=== PATIENT | female | born 1935 | race Caucasian/White ===

== ENCOUNTER 2017-06-20 05:28 | Inpatient (IN) ==
[2017-06-20] MEDS ORDERED: VANCOMYCIN INJ 1,000 MG in SODIUM CHLORIDE 0.9% 250 ML IV ONE (06:00)
[2017-06-20] MEDS ORDERED: CLINDAMYCIN INJ 900 MG in PREMIX 1 EACH IV ONE (06:00)
[2017-06-20] MEDS ORDERED: TRANEXAMIC ACID 1,000 MG/10 ML VIAL IV ONE (06:52)
--- NOTE | 2017-06-20 06:54 | History and Physical Update ---
History and Physical Update - History and Physical H&P was reviewed, the patient examined and there: are no changes in the patients condition since last H&P was completed.
[2017-06-20] MEDS ORDERED: VANCOMYCIN 1,000 MG VIAL ONE (07:58)
[2017-06-20] MEDS ORDERED: CLINDAMYCIN INJ 50 ML IV ONE (07:58)
[2017-06-20] MEDS ORDERED: LACTATED RINGERS 1,000 ML IV SCH (08:00)
[2017-06-20] MEDS ORDERED: PHENYLEPHRINE 1 MG/10 ML SYRINGE IV ONE (08:29)
[2017-06-20] MEDS ORDERED: PROPOFOL 500 MG/50 ML BOTTLE IV ONE ×2 (08:29→10:41)
[2017-06-20] MEDS ORDERED: LIDOCAINE 1% 5 ML VIAL ONE (08:29)
[2017-06-20] MEDS ORDERED: MORPHINE 2 MG/1 ML SYRINGE IV PRN ×2 (09:05)
[2017-06-20] MEDS ORDERED: oxyCODONE IR 5 MG TABLET PO PRN ×2 (09:05)
[2017-06-20] MEDS ORDERED: ONDANSETRON 4 MG/2 ML VIAL IV PRN (09:05)
[2017-06-20] MEDS ORDERED: BACITRACIN OINT 0.9 GM PACK TOP ONE ×2 (09:35→09:59)
--- NOTE | 2017-06-20 10:21 | Operative Note ---
Date of procedure: 06/20/17 Procedure: DIAGNOSIS: Right knee primary osteoarthrosis PROCEDURE: Right total knee arthroplasty (cpt #62176) SURGEON: Isauro ANESTHESIA: Spinal with a postoperative adductor canal block PROCEDURE and FINDINGS: After adequate was induced, the patient's knee was prepped and draped in the usual sterile fashion. The limb was exsanguinated with Esmarch. Tourniquet was inflated to 300 mmHg. A median parapatellar approach was made. Femur was cut using an intramedullary guide and a 4 in 1 cutting jig in 5 degrees of valgus. ACL and menisci were excised. Tibia was cut using intramedullary guide. Patella was cut using freehand technique. Components were trialed. Tibial fin was prepared. Components are cemented in place using Palacos cement and modern cementing techniques. Cement was removed. A 1/8 inch Hemovac drain was placed. The knee was well-balanced and full range of motion with central tracking patella. Deep layers closed with 0-0 Vicryl. Superficial layers were closed with 2-0 and 3-0 Vicryl. Skin was approximated with brando. Bacitracin and a sterile dressing was applied. Patient was transferred to recovery. A postoperative adductor canal block is anticipated. COMPONENTS: The Abby Persona system was used. 9 CR narrow femur, F natural tibia, 10 mm liner, 35 mm patella TOURNIQUET TIME: 48 minutes Surgeon / Physician: Neymar Box Jr. Discharge Plan - Discharge Medications No Action Omeprazole [Prilosec] 20 mg PO DAILY Aspirin [Ecotrin] 81 mg PO DAILY amLODIPine [Norvasc] 2.5 mg PO DAILY Potassium Chloride 20 meq PO DAILY Magnesium Chloride [Slow Mag] 64 mg PO DAILY [place]-3S/Dha/Epa/Fish Oil [Fish Oil 1,200 mg Softgel] 1 each PO DAILY Olmesartan/Hydrochlorothiazide [Olmesartan-Hctz 40-25 mg Tab] 1 each PO DAILY Atorvastatin [Lipitor] 10 mg PO BEDTIME Mv-Min/FA/Vit K/Lycop/Lut/Zeax [Ocuvite Eye + Multi Tablet] 1 each PO DAILY Multivitamin [Multivitamins] 1 each PO DAILY - Follow Up or Referral - Forms/Instructions
[2017-06-20] MEDS ORDERED: ROPIVACAINE 0.5% 30 ML VIAL ONE (10:24)
[2017-06-20] MEDS ORDERED: MIDAZOLAM 2 MG/2 ML VIAL ONE (10:41)
--- NOTE | 2017-06-20 11:24 | XRay Report ---
XR knee 2V RT Indication: Knee arthroplasty Comparison: None available Findings: Right knee arthroplasty has been performed. Arthroplasty component alignment and positioning appear within normal limits. No periprosthetic fracture seen. Impression: Expected postoperative appearance of the right knee. PROCEDURE INTERPRETED AT [facility] DEPARTMENT OF RADIOLOGY Final Report Signed by: Dr. Rebel Trimble
[2017-06-20] MEDS: MULTIVITAMIN (CENTRUM) TABLET PO SCH (12:55)
[2017-06-20] MEDS: PANTOPRAZOLE 40 MG TABLET PO SCH (12:55)
[2017-06-20] MEDS: OMEGA 3 ACID ETHYL ESTERS 1 GM CAPSULE PO SCH (12:58)
[2017-06-20] MEDS: KETOROLAC 15 MG/1 ML VIAL IV SCH ×2 (13:19→23:24)
[2017-06-20] MEDS: ACETAMINOPHEN 500 MG TABLET PO SCH ×2 (13:25→23:24)
[2017-06-20] MEDS: DEXT 5% LACT RING KCL 20 MEQ 20 MEQ/1,000 ML BAG IV SCH (13:25)
[2017-06-20] MEDS: CLINDAMYCIN INJ 900 MG in PREMIX 1 EACH IV SCH ×2 (13:30→23:25)
--- NOTE | 2017-06-20 16:05 | Orthopedic Progress Note ---
Orthopedics - Subjective Interval history: Comfortable. Post op. nv ok. dressing dry. Continue per protocol. Exam - Constitutional Vitals: Period Temp Pulse Resp BP Sys/Unger Pulse Ox Last 24 Hr 97.2 F-98.2 F 64-91 16-20 111-154/52-92 97-100
--- NOTE | 2017-06-20 18:16 | Pulmonology Progress Note ---
Pulmonary - PN: Subj Interval history: The patient is a 82 years old and has significant arthritis of her knees. She had been having a difficult time getting around because of right knee pain. She comes in now for right knee replacement. She has a history of having a mild CVA in the past with some minimal right-sided weakness. She does have a history of hypertension but no heart disease. She has not had any trouble with her breathing. She came in today and did well with her surgery. She is uncomfortable lying in bed however. Otherwise she is not having any breathing problems or other medical problems. Exam (Progress Note) - Constitutional Vitals: Period Temp Pulse Resp BP Sys/Unger Pulse Ox Last 24 Hr 96.9 F-98.2 F 64-98 16-20 111-154/52-92 95-100 General appearance: mild distress (She is uncomfortable lying in bed at present. She is having some discomfort with her knee and back), over weight - Head Head exam: Present: normal inspection, normocephalic - Eye Eye exam: Present: EOMI. Absent: scleral icterus Pupils: Present: JOYS - ENT ENT exam: Present: normal exam - Neck Neck exam: Absent: lymphadenopathy, thyromegaly - Respiratory Respiratory exam: Present: clear to auscultation bilaterally. Absent: wheezes - Cardiovascular Cardiovascular exam: Present: regular rate and rhythm. Absent: gallop, systolic murmur - GI/Abdominal GI/Abdominal exam: Present: normal bowel sounds, soft. Absent: organomegaly, tenderness - Extremities Exam Extremities exam: Present: other (The right leg is splinted). Absent: edema - Neurological Exam Neurological exam: Present: alert, oriented X3, CN II-XII intact - Psychiatric Psychiatric exam: Present: normal affect - Skin Skin exam: Present: warm, dry Assessment and Plan (1) Degenerative arthritis Status: Acute Assessment and plan: She has been having considerable arthritis of her knees and her right knee has been bothering her a lot. She comes in now for a knee replacement. Current Visit: Yes (2) Status post right knee replacement Status: Acute Assessment and plan: She did well today with surgery and is fairly stable postop. Current Visit: Yes (3) Hypertension Status: Acute Assessment and plan: Her blood pressure and heart rate have been stable. Current Visit: Yes (4) History of CVA (cerebrovascular accident) Status: Acute Assessment and plan: She has had an aneurysm and a mild CVA in the past but is doing fairly well now. Current Visit: Yes
[2017-06-20] MEDS: ATORVASTATIN 20 MG TABLET PO SCH (20:38)
[2017-06-20] MEDS: DOCUSATE SODIUM 100 MG CAPSULE PO SCH (20:38)
[2017-06-20] MEDS: ZALEPLON 5 MG CAPSULE PO PRN (23:23)
[2017-06-21] MEDS: DEXT 5% LACT RING KCL 20 MEQ 20 MEQ/1,000 ML BAG IV SCH ×2 (03:23→22:07)
[2017-06-21] MEDS: ACETAMINOPHEN 500 MG TABLET PO SCH ×2 (06:18→11:36)
[2017-06-21] MEDS: KETOROLAC 15 MG/1 ML VIAL IV SCH ×2 (06:18→11:37)
[2017-06-21 07:11] LABS: Basophils % 0.4 % (0.0-0.8); Eosinophils # 0.2 10*3/uL (0.0-0.87); Eosinophils % 2.2 % (0.00-10.9); Hemoglobin 12.3 GM/DL (12.0-16.0); Immature Granulocytes % 0.6 %; Immature Granulocytes Absolute 0.06 #; Lymphocytes # 1.8 10*3/uL (1.4-4.0); Lymphocytes % 17.7 % (21.3-54.2); Mean Corpuscular HGB Conc 32.4 GM/DL (32-36); Mean Corpuscular Hemoglobin 29 PG (27-34); Mean Corpuscular Volume 89.4 FL (87-102); Mean Platelet Volume 10.1 FL (9.6-12.0); Monocytes # 1.2 10*3/uL (0.11-0.8); Monocytes % 11.7 % (1.7-12.7); Neutrophils # 6.8 10*3/uL (1.4-7.4); Neutrophils % 67.4 % (38.7-73.9); Platelet Count 205 T/CUMM (130-400); Red Blood Count 4.25 MC/CUMM (3.8-5.5); Red Cell Distribution Width 14.3 % (9.3-17.3)
[2017-06-21 07:55] LABS: Calcium 8.8 MG/DL (8.5-10.1); Osmolality,Calculated 283.1 MOS/KG (273-304); Potassium 4.2 MMOL/L (3.5-5.1)
--- NOTE | 2017-06-21 08:38 | Orthopedic Progress Note ---
Orthopedics - Subjective Interval history: Comfortable postop. Dressing clean, dry and intact. Right lower extremity neurovascular change. Plan: Mobilize per protocol. Plan swing bed placement. Exam - Constitutional Vitals: Period Temp Pulse Resp BP Sys/Unger Pulse Ox Last 24 Hr 96.7 F-98.6 F 64-98 16-20 99-144/44-92 92-100 Results - Labs CBC & BMP: 06/21/17 06:40 06/21/17 06:40
--- NOTE | 2017-06-21 08:56 | Pulmonology Progress Note ---
Pulmonary - PN: Subj Interval history: The patient is a 82 years old and has significant arthritis of her knees. She had been having a difficult time getting around because of right knee pain. She comes in now for right knee replacement. She has a history of having a mild CVA in the past with some minimal right-sided weakness. She does have a history of hypertension but no heart disease. She has not had any trouble with her breathing. She was uncomfortable yesterday after surgery but she had a better night. She says she slept well and feels better today. Her drains are out today and she is going to start moving around. Overall she looks like she is doing well. Exam (Progress Note) - Constitutional Vitals: Period Temp Pulse Resp BP Sys/Unger Pulse Ox Last 24 Hr 96.7 F-98.6 F 64-98 16-20 99-144/44-92 92-100 Exam: General appearance: no distress (She is much more comfortable today.) - Head Head exam: Present: normal inspection, normocephalic - Eye Eye exam: Present: EOMI. Absent: scleral icterus Pupils: Present: JOSY - ENT ENT exam: Present: normal exam - Neck Neck exam: Absent: lymphadenopathy, thyromegaly - Respiratory Respiratory exam: Present: clear to auscultation bilaterally. She is moving air well without any problems. absent: wheezes - Cardiovascular Cardiovascular exam: Present: regular rate and rhythm. Absent: gallop, systolic murmur - GI/Abdominal GI/Abdominal exam: Present: normal bowel sounds, soft. Absent: organomegaly, tenderness - Extremities Exam Extremities exam: Present: other (The right leg is splinted). She does not have any increased swelling. Neurological exam: Present: alert, oriented X3, CN II-XII intact - Psychiatric Psychiatric exam: Present: normal affect - Skin Skin exam: Present: warm, dry Results - Labs CBC & BMP: 06/21/17 06:40 06/21/17 06:40 Assessment and Plan (1) Degenerative arthritis Status: Acute Assessment and plan: She has been having considerable arthritis of her knees and her right knee has been bothering her a lot. She comes in now for a knee replacement. She is doing well postop. Current Visit: Yes (2) Status post right knee replacement Status: Acute Assessment and plan: She did well with surgery and feels better today. She will start physical therapy. Current Visit: Yes (3) Hypertension Status: Acute Assessment and plan: Her blood pressure and heart rate have been stable. She seems to be doing well medically. Current Visit: Yes (4) History of CVA (cerebrovascular accident) Status: Acute Assessment and plan: She has had an aneurysm and a mild CVA in the past but is doing fairly well now. Current Visit: Yes
[2017-06-21] MEDS ORDERED: NON-FORMULARY MEDICATION (Multivitamin [Multivitamins] 1 EACH) PO SCH (09:00)
[2017-06-21] MEDS: POTASSIUM CHLORIDE 20 MEQ TABLET PO SCH (09:13)
[2017-06-21] MEDS: MULTIVITAMIN (CENTRUM) TABLET PO SCH (09:13)
[2017-06-21] MEDS: PANTOPRAZOLE 40 MG TABLET PO SCH (09:13)
[2017-06-21] MEDS: DOCUSATE SODIUM 100 MG CAPSULE PO SCH ×2 (09:13→21:23)
[2017-06-21] MEDS: OMEGA 3 ACID ETHYL ESTERS 1 GM CAPSULE PO SCH (09:13)
[2017-06-21] MEDS: FONDAPARINUX 2.5 MG/0.5 ML SYRINGE SUBCUT SCH (09:21)
--- NOTE | 2017-06-21 10:21 | Pathology Report from [facility] ---
[facility] [place] ACCESSION # : [id number] PATIENT NAME : Suzanne Valerio ORDERING DR : ALFA YING MD CLINICAL HX: RT knee osteoarthritis POST-OP DX: Same SPECIMEN INFO: RT knee bone & tissue GROSS DESCRIPTION: Received in formalin labeled SUZANNE VALERIO is an aggregate of bone, soft tissue and cartilage measuring 13.0 x 8.0 cm. The articular surfaces are focally degenerative with areas of subchondral eburnation seen. Looping Machine Operator tissue is submitted in one cassette. DIAGNOSIS FOR SUZANNE VALERIO: RIGHT KNEE, TOTAL REPLACEMENT: Fragments of benign cartilage and bone with degenerative/reactive changes, c/w osteoarthritis. COLLECTED DATE: 06/20/2017 [facility] [place] REPORT DATE: 06/21/2017 ELECTRONICALLY SIGNED BY: Mya Leary M.D. 06/21/2017 - 9:50:04 KATIE
[2017-06-21] MEDS: OLMESARTAN 20 MG TABLET PO SCH (11:44)
[2017-06-21] MEDS: hydroCHLOROthiazide 25 MG TABLET PO SCH (11:44)
[2017-06-21] MEDS: amLODIPine 2.5 MG TABLET PO SCH (11:44)
[2017-06-21] MEDS: CELECOXIB 200 MG CAPSULE PO SCH (15:40)
[2017-06-21] MEDS: ATORVASTATIN 20 MG TABLET PO SCH (21:23)
[2017-06-21] MEDS: ZALEPLON 5 MG CAPSULE PO PRN (21:24)
[2017-06-22 07:21] LABS: Basophils # 0.1 10*3/uL (0.0-0.2); Basophils % 0.6 % (0.0-0.8); Eosinophils # 0.3 10*3/uL (0.0-0.87); Eosinophils % 3.1 % (0.00-10.9); Hematocrit 38.4 VOL% (35.7-47.0); Hemoglobin 12.4 GM/DL (12.0-16.0); Immature Granulocytes % 0.5 %; Immature Granulocytes Absolute 0.05 #; Lymphocytes # 2.2 10*3/uL (1.4-4.0); Lymphocytes % 20.3 % (21.3-54.2); Mean Corpuscular HGB Conc 32.3 GM/DL (32-36); Mean Corpuscular Hemoglobin 29 PG (27-34); Mean Corpuscular Volume 89.5 FL (87-102); Mean Platelet Volume 10.7 FL (9.6-12.0); Monocytes # 0.9 10*3/uL (0.11-0.8); Monocytes % 8.3 % (1.7-12.7); Neutrophils # 7.2 10*3/uL (1.4-7.4); Neutrophils % 67.2 % (38.7-73.9); Platelet Count 203 T/CUMM (130-400); Red Blood Count 4.29 MC/CUMM (3.8-5.5); Red Cell Distribution Width 14.4 % (9.3-17.3); White Blood Count 10.7 T/CUMM (4-12)
--- NOTE | 2017-06-22 08:47 | Pulmonology Progress Note ---
Pulmonary - PN: Subj Interval history: The patient is a 82 years old and has significant arthritis of her knees. She had been having a difficult time getting around because of right knee pain. She comes in now for right knee replacement. She has a history of having a mild CVA in the past with some minimal right-sided weakness. She does have a history of hypertension but no heart disease. She has not had any trouble with her breathing. She had a fairly good day yesterday but she is very anxious this morning about lying in bed. She is also nervous about not being able to get around yet. Her right arm weakness limits her use with a walker. Her knee overall is feeling a little better. Will give her some Tranxene for anxiety. Exam (Progress Note) - Constitutional Vitals: Period Temp Pulse Resp BP Sys/Unger Pulse Ox Last 24 Hr 96.3 F-98.4 F 70-82 17-20 96-157/49-71 91-97 Exam: General appearance: no distress (She is anxious this morning but otherwise doing okay.) - Head Head exam: Present: normal inspection, normocephalic - Eye Eye exam: Present: EOMI. Absent: scleral icterus Pupils: Present: JOSY - ENT ENT exam: Present: normal exam - Neck Neck exam: Absent: lymphadenopathy, thyromegaly - Respiratory Respiratory exam: Present: clear to auscultation bilaterally. She is moving air well without any problems. absent: wheezes - Cardiovascular Cardiovascular exam: Present: regular rate and rhythm. Absent: gallop, systolic murmur - GI/Abdominal GI/Abdominal exam: Present: normal bowel sounds, soft. Absent: organomegaly, tenderness - Extremities Exam Extremities exam: Present: other (The right leg is splinted). She does not have any increased swelling. Neurological exam: Present: alert, oriented X3, CN II-XII intact, she has some mild right arm weakness. - Psychiatric Psychiatric exam: Present: She is anxious this morning. - Skin Skin exam: Present: warm, dry Results - Labs CBC & BMP: 06/22/17 06:07 06/21/17 06:40 Assessment and Plan (1) Degenerative arthritis Status: Acute Assessment and plan: She has been having considerable arthritis of her knees and her right knee has been bothering her a lot. She has had her knee replacement now. Current Visit: Yes (2) Status post right knee replacement Status: Acute Assessment and plan: She did well with surgery and her knee is doing a little better. She will continue with physical therapy. Current Visit: Yes (3) Hypertension Status: Acute Assessment and plan: Her blood pressure and heart rate have been stable. She is having some anxiety about lying in bed. She will continue with her physical therapy. We will try some Tranxene for anxiety. Current Visit: Yes (4) History of CVA (cerebrovascular accident) Status: Acute Assessment and plan: She has had an aneurysm and a mild CVA in the past but is doing fairly well now. Current Visit: Yes Specialty Discharge - Follow Up or Referrals Follow up with: Neymar Box Jr., MD [Physician] -
--- NOTE | 2017-06-22 09:09 | Orthopedic Progress Note ---
Orthopedics - Subjective Interval history: Ms Snider was able to mobilize to chair yesterday. She was a little sedated yesterday morning which limited her morning physical therapy session. Right lower extremity is neurovascularly intact. Her dressing is clean, dry and intact. Plan: Continue to mobilize with physical therapy. Decrease [place] dose from 7.5' s to 5's. Plan swing bed placement tomorrow. Exam - Constitutional Vitals: Period Temp Pulse Resp BP Sys/Unger Pulse Ox Last 24 Hr 96.3 F-98.4 F 70-82 17-20 96-157/49-71 91-97 Results - Labs CBC & BMP: 06/22/17 06:07 06/21/17 06:40 Specialty Discharge - Follow Up or Referrals Follow up with: Neymar Box Jr., MD [Physician] -
[2017-06-22] MEDS: FONDAPARINUX 2.5 MG/0.5 ML SYRINGE SUBCUT SCH (09:27)
[2017-06-22] MEDS: hydroCHLOROthiazide 25 MG TABLET PO SCH (09:28)
[2017-06-22] MEDS: CLORAZEPATE 3.75 MG TABLET PO PRN ×2 (09:28→21:12)
[2017-06-22] MEDS: OMEGA 3 ACID ETHYL ESTERS 1 GM CAPSULE PO SCH (09:28)
[2017-06-22] MEDS: CELECOXIB 200 MG CAPSULE PO SCH (09:28)
[2017-06-22] MEDS: amLODIPine 2.5 MG TABLET PO SCH (09:28)
[2017-06-22] MEDS: DOCUSATE SODIUM 100 MG CAPSULE PO SCH ×2 (09:28→21:13)
[2017-06-22] MEDS: OLMESARTAN 20 MG TABLET PO SCH (09:28)
[2017-06-22] MEDS: POTASSIUM CHLORIDE 20 MEQ TABLET PO SCH (09:29)
[2017-06-22] MEDS: PANTOPRAZOLE 40 MG TABLET PO SCH (09:29)
[2017-06-22] MEDS: MULTIVITAMIN (CENTRUM) TABLET PO SCH (09:52)
[2017-06-22] MEDS: MAGNESIUM HYDROXIDE SUSP 30 ML UDCUP PO PRN (12:29)
--- NOTE | 2017-06-22 14:01 | Discharge Summary ---
Hospital Course - Hospital Course Hospital Course: Suzanne Snider was admitted after undergoing an uncomplicated right total knee arthroplasty. She received perioperative DVT and antimicrobial prophylaxis. She received physical therapy. She was discharged to swing bed in stable condition. Dr. Benz was consulted to manage her medical problems perioperatively. Her wound is clean, dry and intact. Right lower extremity is neurovascularly unchanged. Specialty Discharge - Follow Up or Referrals Follow up with: Neymar Box Jr., MD [Physician] - 07/20/17 8:55 am Discharge Plan - Discharge Data Disposition: Disch/Xfer to Snf Condition at Discharge: Stable Discharge Diet: advance to your usual diet Hygiene: may shower Weight Bearing at Discharge: weight bear as tolerated Driving: not until seen by doctor - Discharge Medications New Docusate Sodium Cap [Colace Cap] 100 mg PO BID capsule Fondaparinux [Arixtra] 2.5 mg SUBCUT Q24H 10 Days HYDROcodone/ACETAMIN 5-325 [[place] 5-325] 1 tablet PO Q4H PRN tablet PRN Reason: Pain Moderate (4-7) HYDROcodone/ACETAMIN 5-325 [[place] 5-325] 2 tablet PO Q4H PRN tablet PRN Reason: Pain Moderate (4-7) Continue Omeprazole [Prilosec] 20 mg PO DAILY Aspirin [Ecotrin] 81 mg PO DAILY amLODIPine [Norvasc] 2.5 mg PO DAILY Potassium Chloride 20 meq PO DAILY Magnesium Chloride [Slow Mag] 64 mg PO DAILY [place]-3S/Dha/Epa/Fish Oil [Fish Oil 1,200 mg Softgel] 1 each PO DAILY Olmesartan/Hydrochlorothiazide [Olmesartan-Hctz 40-25 mg Tab] 1 each PO DAILY Atorvastatin [Lipitor] 10 mg PO BEDTIME Mv-Min/FA/Vit K/Lycop/Lut/Zeax [Ocuvite Eye + Multi Tablet] 1 each PO DAILY Multivitamin [Multivitamins] 1 each PO DAILY - Follow Up or Referral Follow Up: Neymar Box Jr., MD [Physician] - 07/20/17 8:55 am - Forms/Instructions Additional Discharge Instructions: Daily dry dressing changes. Weightbearing as tolerated. CPM while at swing bed. Arrange walker and bedside commode for home use. Wear SAMANTHA hose for 1 month. Discontinue brando and Steri-Strip wound on July 01, 2017. Follow-up appointment in 4 weeks. Arixtra for 10 days. Prescription for [place] 5 with 20 tablets was written. Exam - Constitutional Vitals: Period Temp Pulse Resp BP Sys/Unger Pulse Ox Last 24 Hr 97.3 F-98.4 F 75-84 17-20 107-157/59-71 96-97 Discharge Results Procedures and tests throughout hospitalization: Pending Orders 06/23/17 04:00 Comp Blood Count Auto Diff IN AM Labs on day of discharge: Labs from last 24 hours 06/22/17 06:07 WBC 10.7 RBC 4.29 Hgb 12.4 Hct 38.4 MCV 89.5 MCH 29 MCHC 32.3 RDW 14.4 Plt Count 203 MPV 10.7 Neut % (Auto) 67.2 Lymph % (Auto) 20.3 L [place] % (Auto) 8.3 Eos % (Auto) 3.1 Baso % (Auto) 0.6 Neut # (Auto) 7.2 Lymph # (Auto) 2.2 [place] # (Auto) 0.9 H Eos # (Auto) 0.3 Baso # (Auto) 0.1 Immature Gran % 0.5 Nucleated RBC % 0.0 Immature Gran # 0.05 Nucleated RBCs # 0.00 Immature Plt Fraction 0.0 DS: Provider Date of admission: 06/20/17 05:28 Primary care physician: Vibha Kenney MD Attending physician on admission: Neymar Box Jr., Consults: 06/20/17 09:05 Consult to Case Mgmt/Social Srvs [CONS] Routine Reason for Case Mgmt/Social Srvs: Rehab Home Health Equipment Consult Comment: Bedside Commode, CPM, Walker Consult to Occupational Therapy [CONS] Routine Reason for Occupational Therapy: Evaluate and Treat Consult Comment: ADL's Consult to Physical Therapy [CONS] Routine Reason for Physical Therapy: Evaluate and Treat Gait Training Start Therapy: Today 06/20/17 11:33 Consult to Physician [CONS] Routine Comment: Consulting Provider: Kuldeep Benz Consulting Provider Notified: Yes When should Consulting Provider be notified: Now Person Notified: leopoldo deshawn Date Notified: 06/20/17 Time Notified: 11:35 06/20/17 11:56 Consult to Pastoral Services [CONS] Routine Comment: Pastoral Screen: Request Hand Turner Visit Pastoral Screen Source of Request: Patient Family Discharging clinician: Neymar Box Jr., Expected date of discharge: 06/23/17
[2017-06-22] MEDS: ATORVASTATIN 20 MG TABLET PO SCH (21:12)
[2017-06-23] MEDS: MAGNESIUM HYDROXIDE SUSP 30 ML UDCUP PO PRN (05:45)
[2017-06-23 06:22] LABS: Basophils # 0.1 10*3/uL (0.0-0.2); Basophils % 0.7 % (0.0-0.8); Eosinophils # 0.4 10*3/uL (0.0-0.87); Eosinophils % 4.8 % (0.00-10.9); Hematocrit 36.6 VOL% (35.7-47.0); Immature Granulocytes % 0.6 %; Immature Granulocytes Absolute 0.05 #; Lymphocytes # 2.2 10*3/uL (1.4-4.0); Lymphocytes % 24.6 % (21.3-54.2); Mean Corpuscular HGB Conc 32.8 GM/DL (32-36); Mean Corpuscular Hemoglobin 29 PG (27-34); Mean Corpuscular Volume 88.6 FL (87-102); Mean Platelet Volume 10.1 FL (9.6-12.0); Monocytes # 0.8 10*3/uL (0.11-0.8); Monocytes % 8.3 % (1.7-12.7); Neutrophils # 5.5 10*3/uL (1.4-7.4); Platelet Count 222 T/CUMM (130-400); Red Blood Count 4.13 MC/CUMM (3.8-5.5); Red Cell Distribution Width 14.4 % (9.3-17.3)
[2017-06-23] MEDS ORDERED: BISACODYL 10 MG SUPP RECTAL PRN (07:48)
[2017-06-23] MEDS: FONDAPARINUX 2.5 MG/0.5 ML SYRINGE SUBCUT SCH (08:23)
[2017-06-23] MEDS: DOCUSATE SODIUM 100 MG CAPSULE PO SCH (08:24)
[2017-06-23] MEDS: amLODIPine 2.5 MG TABLET PO SCH (08:24)
[2017-06-23] MEDS: CELECOXIB 200 MG CAPSULE PO SCH (08:25)
[2017-06-23] MEDS: MULTIVITAMIN (CENTRUM) TABLET PO SCH (08:25)
[2017-06-23] MEDS: PANTOPRAZOLE 40 MG TABLET PO SCH (08:25)
[2017-06-23] MEDS: hydroCHLOROthiazide 25 MG TABLET PO SCH (08:25)
[2017-06-23] MEDS: OLMESARTAN 20 MG TABLET PO SCH (08:25)
[2017-06-23] MEDS: POTASSIUM CHLORIDE 20 MEQ TABLET PO SCH (08:25)
[2017-06-23] MEDS: OMEGA 3 ACID ETHYL ESTERS 1 GM CAPSULE PO SCH (08:26)
--- NOTE | 2017-06-23 09:08 | Pulmonology Progress Note ---
Pulmonary - PN: Subj Interval history: The patient is a 82 years old and has significant arthritis of her knees. She had been having a difficult time getting around because of right knee pain. She comes in now for right knee replacement. She has a history of having a mild CVA in the past with some minimal right-sided weakness. She does have a history of hypertension but no heart disease. She has not had any trouble with her breathing. She had a better day yesterday and says she rested well. She says her leg feels better and she is doing a little more activity. Overall she is doing well and is going to a swing bed today. Exam (Progress Note) - Constitutional Vitals: Period Temp Pulse Resp BP Sys/Unger Pulse Ox Last 24 Hr 96.9 F-98.1 F 76-87 16-20 118-156/48-65 94-96 Exam: General appearance: no distress (She is more comfortable today.) - Head Head exam: Present: normal inspection, normocephalic - Eye Eye exam: Present: EOMI. Absent: scleral icterus Pupils: Present: JOSY - ENT ENT exam: Present: normal exam - Neck Neck exam: Absent: lymphadenopathy, thyromegaly - Respiratory Respiratory exam: Present: clear to auscultation bilaterally. She is moving air well without any problems. absent: wheezes - Cardiovascular Cardiovascular exam: Present: regular rate and rhythm. Absent: gallop, systolic murmur - GI/Abdominal GI/Abdominal exam: Present: normal bowel sounds, soft. Absent: organomegaly, tenderness - Extremities Exam Extremities exam: Present: other (The right leg is splinted). She does not have any increased swelling. Neurological exam: Present: alert, oriented X3, CN II-XII intact, she has some mild right arm weakness. - Psychiatric Psychiatric exam: Present: She is much more relaxed today. - Skin Skin exam: Present: warm, dry Results - Labs CBC & BMP: 06/23/17 06:03 06/21/17 06:40 Assessment and Plan (1) Degenerative arthritis Status: Acute Assessment and plan: She has been having considerable arthritis of her knees and her right knee has been bothering her a lot. She comes in for the knee replacement and is doing well. Current Visit: Yes (2) Status post right knee replacement Status: Acute Assessment and plan: She did well with surgery and her knee is doing a little better. She will continue with physical therapy. She will go to a swing bed today. Current Visit: Yes (3) Hypertension Status: Acute Assessment and plan: Her blood pressure and heart rate have been stable. She says she rested better and feels better overall. Current Visit: Yes (4) History of CVA (cerebrovascular accident) Status: Acute Assessment and plan: She has had an aneurysm and a mild CVA in the past but is doing fairly well now. Current Visit: Yes Specialty Discharge - Follow Up or Referrals Follow up with: Neymar Box Jr., MD [Physician] - 07/20/17 8:55 am
[2017-06-23 11:13] VITALS: BP 106/43
== END 2017-06-23 13:40 | disposition swing bed (61) | DRG 470 ==
LOC: N.SDSINP 05:28 → N.3E 09:43
PROVIDERS: ADMIT Orthopaedic Surgery; ATTEND Orthopaedic Surgery

== ENCOUNTER 2020-10-13 11:45 | Observation (INO) ==
[2020-10-13 13:16] LABS: Basophils # 0.1 10*3/uL (0.0-0.2); Basophils % 0.7 % (0.0-0.8); Eosinophils # 0.2 10*3/uL (0.0-0.87); Eosinophils % 2.2 % (0.00-10.9); Hematocrit 45.9 VOL% (35.7-47.0); Hemoglobin 13.9 GM/DL (12.0-16.0); Immature Granulocytes % 0.5 %; Immature Granulocytes Absolute 0.05 #; Lymphocytes # 2.3 10*3/uL (1.4-4.0); Lymphocytes % 21.6 % (21.3-54.2); Mean Corpuscular HGB Conc 30.3 GM/DL (32-36); Mean Platelet Volume 10.2 FL (9.6-12.0); Monocytes % 7.8 % (1.7-12.7); Neutrophils % 67.2 % (38.7-73.9); Platelet Count 267 T/CUMM (130-400); Red Blood Count 4.99 MC/CUMM (3.8-5.5); Red Cell Distribution Width 14.2 % (9.3-17.3); White Blood Count 10.6 T/CUMM (4-12)
[2020-10-13 13:36] LABS: Troponin I < 0.015 NG/ML (0.00-0.045)
[2020-10-13 13:51] LABS: Albumin 3.7 G/DL (3.4-5.0); Bilirubin,Total 0.5 MG/DL (0.2-1.0); Calcium 9.3 MG/DL (8.5-10.1); Osmolality,Calculated 286.1 MOS/KG (273-304); Potassium 3.9 MMOL/L (3.5-5.1); Total Protein 7.4 G/DL (6.4-8.3)
[2020-10-13] MEDS ORDERED: GLUCAGON 1 MG VIAL IM PRN (15:31)
[2020-10-13] MEDS ORDERED: ACETAMINOPHEN 325 MG TABLET PO PRN (15:31)
[2020-10-13] MEDS ORDERED: DEXTROSE 50% 25 GM/50 ML VIAL IV PRN (15:31)
[2020-10-13] MEDS ORDERED: ONDANSETRON 4 MG/2 ML VIAL IV PRN (15:31)
[2020-10-13] MEDS ORDERED: ALBUTEROL/IPRATROPIUM 3 ML NEB RESP TX PRN (16:25)
[2020-10-13 17:45] LABS: PT Patient Result 10.7 SECS (9.8-11.9)
[2020-10-14 06:05] LABS: Basophils # 0.1 10*3/uL (0.0-0.2); Basophils % 0.7 % (0.0-0.8); Calcium 8.6 MG/DL (8.5-10.1); Eosinophils # 0.2 10*3/uL (0.0-0.87); Eosinophils % 3.2 % (0.00-10.9); Hematocrit 36.9 VOL% (35.7-47.0); Immature Granulocytes % 0.4 %; Immature Granulocytes Absolute 0.03 #; Lymphocytes # 1.9 10*3/uL (1.4-4.0); Lymphocytes % 26.2 % (21.3-54.2); Mean Corpuscular HGB Conc 31.7 GM/DL (32-36); Mean Corpuscular Volume 89.3 FL (87-102); Mean Platelet Volume 10.6 FL (9.6-12.0); Monocytes % 8.5 % (1.7-12.7); Osmolality,Calculated 282.3 MOS/KG (273-304); Potassium 3.5 MMOL/L (3.5-5.1); Red Blood Count 4.13 MC/CUMM (3.8-5.5); Red Cell Distribution Width 14.1 % (9.3-17.3)
[2020-10-14 06:07] LABS: Hemoglobin 11.7 GM/DL (12.0-16.0); Platelet Count 200 T/CUMM (130-400); White Blood Count 7.4 T/CUMM (4-12)
[2020-10-14] MEDS ORDERED: PANTOPRAZOLE 40 MG TABLET PO SCH (09:00)
[2020-10-14] MEDS: ATORVASTATIN 10 MG TABLET PO SCH (21:45)
[2020-10-15] MEDS ORDERED: PROMETHAZINE 25 MG/1 ML VIAL IM ONE (07:00)
[2020-10-15] MEDS ORDERED: MEPERIDINE 50 MG/1 ML VIAL IM ONE (07:00)
[2020-10-15] MEDS ORDERED: MIDAZOLAM 2 MG/2 ML VIAL IV ONE (07:30)
[2020-10-15] MEDS ORDERED: LIDOCAINE 2% 20 ML VIAL RESP TX ONE (07:30)
[2020-10-15] MEDS ORDERED: LIDOCAINE 2% VISCOUS 100 ML BOTTLE SWISH/SPIT ONE (07:30)
[2020-10-15] MEDS ORDERED: LIDOCAINE 1% 20 ML VIAL MISC INJ ONE (07:30)
[2020-10-15 09:16] LABS: Basophils # 0.1 10*3/uL (0.0-0.2); Basophils % 0.7 % (0.0-0.8); Eosinophils # 0.3 10*3/uL (0.0-0.87); Hematocrit 40.5 VOL% (35.7-47.0); Hemoglobin 12.5 GM/DL (12.0-16.0); Immature Granulocytes % 0.4 %; Immature Granulocytes Absolute 0.04 #; Lymphocytes # 1.7 10*3/uL (1.4-4.0); Lymphocytes % 18.8 % (21.3-54.2); Mean Corpuscular HGB Conc 30.9 GM/DL (32-36); Mean Corpuscular Volume 89.8 FL (87-102); Mean Platelet Volume 10.1 FL (9.6-12.0); Monocytes % 8.4 % (1.7-12.7); Neutrophils % 68.7 % (38.7-73.9); Platelet Count 208 T/CUMM (130-400); Red Blood Count 4.51 MC/CUMM (3.8-5.5); White Blood Count 9.2 T/CUMM (4-12)
[2020-10-15 09:37] LABS: Calcium 8.8 MG/DL (8.5-10.1); Osmolality,Calculated 280.4 MOS/KG (273-304)
[2020-10-15] MEDS: PANTOPRAZOLE 40 MG TABLET PO SCH (11:51)
[2020-10-15] MEDS: amLODIPine 2.5 MG TABLET PO SCH (11:51)
[2020-10-15] MEDS: ATORVASTATIN 10 MG TABLET PO SCH (21:05)
[2020-10-16 05:04] LABS: Basophils # 0.1 10*3/uL (0.0-0.2); Basophils % 0.6 % (0.0-0.8); Eosinophils # 0.3 10*3/uL (0.0-0.87); Eosinophils % 3.4 % (0.00-10.9); Hematocrit 42.3 VOL% (35.7-47.0); Hemoglobin 12.9 GM/DL (12.0-16.0); Immature Granulocytes % 0.6 %; Immature Granulocytes Absolute 0.05 #; Lymphocytes # 1.8 10*3/uL (1.4-4.0); Mean Corpuscular HGB Conc 30.5 GM/DL (32-36); Mean Platelet Volume 10.5 FL (9.6-12.0); Monocytes % 6.9 % (1.7-12.7); Neutrophils % 67.5 % (38.7-73.9); Platelet Count 219 T/CUMM (130-400); Red Blood Count 4.65 MC/CUMM (3.8-5.5); Red Cell Distribution Width 14.1 % (9.3-17.3); White Blood Count 8.6 T/CUMM (4-12)
[2020-10-16 05:34] LABS: Calcium 9.2 MG/DL (8.5-10.1); Osmolality,Calculated 282.3 MOS/KG (273-304)
[2020-10-16 08:15] VITALS: BP 133/66
[2020-10-16] MEDS: PANTOPRAZOLE 40 MG TABLET PO SCH (09:21)
[2020-10-16] MEDS: amLODIPine 2.5 MG TABLET PO SCH (09:21)
[2020-10-16 11:28] LABS: Lymphocytes,Pleural Fluid 90 %; Monocytes,Pleural Fluid 6 %; Neutrophils,Pleural Fluid 4 %
[2020-10-16 11:32] LABS: RBC,Pleural Fluid 29258 T/CUMM
[2020-10-16 12:01] LABS: Total Protein,Body Fluid 3.8 G/DL
== END 2020-10-16 11:40 | disposition home or self-care (01) ==
LOC: N.EDINP 11:45 → N.ED 11:45 → SUATTDRO 15:31 → N.EDINP 19:56 → N.TELEN 20:36
PROVIDERS: ADMIT Emergency Medicine; ATTEND Family Medicine

== ENCOUNTER 2020-11-16 19:14 | Observation (INO) ==
[2020-11-16 20:19] LABS: Basophils # 0.1 10*3/uL (0.0-0.2); Basophils % 0.4 % (0.0-0.8); Eosinophils # 0.3 10*3/uL (0.0-0.87); Eosinophils % 2.2 % (0.00-10.9); Hematocrit 41.8 VOL% (35.7-47.0); Hemoglobin 13.1 GM/DL (12.0-16.0); Immature Granulocytes % 0.6 %; Immature Granulocytes Absolute 0.07 #; Lymphocytes # 1.9 10*3/uL (1.4-4.0); Lymphocytes % 15.5 % (21.3-54.2); Mean Corpuscular HGB Conc 31.3 GM/DL (32-36); Mean Corpuscular Volume 88.4 FL (87-102); Mean Platelet Volume 10.1 FL (9.6-12.0); Monocytes % 9.9 % (1.7-12.7); Neutrophils % 71.4 % (38.7-73.9); Platelet Count 292 T/CUMM (130-400); Red Blood Count 4.73 MC/CUMM (3.8-5.5); Red Cell Distribution Width 14.2 % (9.3-17.3)
[2020-11-16] MEDS ORDERED: LEVOFLOXACIN INJ 500 MG in PREMIX 1 EACH IV STA (20:34)
[2020-11-16 20:39] LABS: Bilirubin,Total 0.7 MG/DL (0.2-1.0); Calcium 8.9 MG/DL (8.5-10.1); Osmolality,Calculated 286.4 MOS/KG (273-304); Potassium 3.8 MMOL/L (3.5-5.1); Total Protein 6.4 G/DL (6.4-8.3)
[2020-11-16] MEDS ORDERED: GLUCAGON 1 MG VIAL IM PRN (22:25)
[2020-11-16] MEDS ORDERED: ONDANSETRON 4 MG/2 ML VIAL IV PRN (22:25)
[2020-11-16] MEDS ORDERED: ACETAMINOPHEN 325 MG TABLET PO PRN (22:25)
[2020-11-16] MEDS ORDERED: DEXTROSE 50% 25 GM/50 ML VIAL IV PRN (22:25)
[2020-11-16] MEDS ORDERED: ALBUTEROL/IPRATROPIUM 3 ML NEB RESP TX PRN (22:25)
[2020-11-16] MEDS ORDERED: ALBUTEROL 2.5 MG/3 ML NEB RESP TX ONE (22:29)
[2020-11-16] MEDS: ENOXAPARIN 40 MG/0.4 ML SYRINGE SUBCUT SCH (22:54)
[2020-11-17 06:23] LABS: INR 1.1; PT Patient Result 11.8 SECS (9.8-11.9); Partial Thromboplastin Time 25.9 SECS (23.9-33.8)
[2020-11-17 08:24] LABS: Basophils # 0.1 10*3/uL (0.0-0.2); Basophils % 0.6 % (0.0-0.8); Eosinophils # 0.3 10*3/uL (0.0-0.87); Eosinophils % 3.2 % (0.00-10.9); Hematocrit 38.1 VOL% (35.7-47.0); Hemoglobin 11.8 GM/DL (12.0-16.0); Immature Granulocytes % 0.5 %; Immature Granulocytes Absolute 0.04 #; Lymphocytes # 1.5 10*3/uL (1.4-4.0); Lymphocytes % 16.5 % (21.3-54.2); Mean Corpuscular Volume 89.4 FL (87-102); Mean Platelet Volume 11.1 FL (9.6-12.0); Monocytes % 9.3 % (1.7-12.7); Neutrophils % 69.9 % (38.7-73.9); Platelet Count 241 T/CUMM (130-400); Red Blood Count 4.26 MC/CUMM (3.8-5.5); Red Cell Distribution Width 14.3 % (9.3-17.3); White Blood Count 8.8 T/CUMM (4-12)
[2020-11-17 08:43] LABS: Calcium 8.8 MG/DL (8.5-10.1); Osmolality,Calculated 282.5 MOS/KG (273-304); Potassium 3.6 MMOL/L (3.5-5.1)
[2020-11-17 15:33] LABS: Total Protein,Pleural Fluid 4.2 G/DL
[2020-11-17] MEDS: PANTOPRAZOLE 40 MG TABLET PO SCH (19:37)
[2020-11-17] MEDS: INSULIN LISPRO 100 UNIT/ML SUBCUT SCH ×2 (19:37→23:15)
[2020-11-17] MEDS: DESITIN 4OZ/NYSTATIN 15 GRAM MIXTURE PASTE TOP SCH (20:55)
[2020-11-17] MEDS: ENOXAPARIN 40 MG/0.4 ML SYRINGE SUBCUT SCH (20:55)
[2020-11-18] MEDS ORDERED: DOXYCYCLINE HYCLATE INJ 200 MG, LIDOCAINE 1% INJ 20 ML in STERILE WATER INJ 30 ML INTRAPLEUR ONE (08:00)
[2020-11-18 08:20] LABS: Calcium 7.6 MG/DL (8.5-10.1); Osmolality,Calculated 277.7 MOS/KG (273-304); Potassium 3.8 MMOL/L (3.5-5.1); Risk Ratio 3.85; VLDL CHOLESTEROL 24.2 MG/DL
[2020-11-18] MEDS: DESITIN 4OZ/NYSTATIN 15 GRAM MIXTURE PASTE TOP SCH ×3 (08:30→22:00)
[2020-11-18] MEDS ORDERED: MAGNESIUM SULF RIDER 2 GM in PREMIX 1 EACH IV ONE (09:23)
[2020-11-18] MEDS: INSULIN LISPRO 100 UNIT/ML SUBCUT SCH (13:14)
[2020-11-18] MEDS ORDERED: LORazepam 2 MG/1 ML VIAL IV PRN (13:22)
[2020-11-18] MEDS: ENOXAPARIN 40 MG/0.4 ML SYRINGE SUBCUT SCH (22:00)
[2020-11-19] MEDS: PANTOPRAZOLE 40 MG TABLET PO SCH (07:56)
[2020-11-19] MEDS ORDERED: DOXYCYCLINE HYCLATE INJ 200 MG, LIDOCAINE 1% INJ 20 ML in STERILE WATER INJ 30 ML INTRAPLEUR ONE (08:00)
[2020-11-19] MEDS: DESITIN 4OZ/NYSTATIN 15 GRAM MIXTURE PASTE TOP SCH (10:33)
[2020-11-19 16:24] VITALS: BP 108/65
== END 2020-11-19 19:01 | disposition hospice, home (50) ==
LOC: N.ED 19:14 → N.EDINP 22:25 → INTOOBSV 22:25 → N.EDINP 23:11 → N.4E 11-17 00:32
PROVIDERS: ADMIT Internal Medicine; ATTEND Internal Medicine
PROC: IRTHORA (2020-11-17 14:14)